=== PATIENT | male | born 1965 | race Caucasian/White ===

== ENCOUNTER 2016-07-08 11:40 | Emergency (ER) | payer OTHER ==
--- NOTE | 2016-07-08 12:33 | UC ---
Palpitation/Dysrhythmia HP - HPI Summary HPI Summary: The patient comes in today for: 1. "My thought my heart sounded different," he states that he has had: a. Generalized heaviness b. Fatigue c. Near syncope with standing up suddenly after laying down "for a while." By "a while" he means for about 4 months. He denies any palpitations. He states that he has had problems with fatigue. Onset: The near syncope has been present after starting the nortriptyline about 4 months ago. Palliative/provocative: Cialis makes it worse. Quality: Near syncope Region: CVS Severity: No pain. Time: Comes and goes. Associated symptoms: Event: He was started on his amitriptyline/nortriptyline by his gastroentertologist for his "stomach burning." He states that his who is a metal riveting machine operator, was listening to his heart with her ear and states that it seems like he is having skipped beats. Chest pain: None. Dyspnea: None Syncope: NOne. He has been taking Cialis also. No near syncope laying down. * - History of Current Complaint Chief Complaint: UCCardiac Stated Complaint: POSSIBLE EXTRA HEART BEATS Time Seen by Provider: 07/08/16 12:27 Hx Obtained From: Patient - Allergy/Home Medications Allergies/Adverse Reactions: Allergies Allergy/AdvReac Type Severity Reaction Status Date / Time Adhesive Tape Allergy slight rash Verified 07/08/16 11:44 Albuterol Allergy Unknown Verified 07/08/16 11:44 Reaction Details Lactose Intolerance (GI) Allergy GI Upset Verified 07/08/16 11:44 Home Medications: Home Medications Nortriptyline HCl [Pamelor] 7.5 mg PO BID 07/08/16 [History Confirmed 07/08/16] Tadalafil [Cialis] 2 mg PO 07/08/16 [History] PMH/Surg Hx/FS Hx/Imm Hx Previously Healthy: No - ED, and 'stomach burning sensation' on nortriptyline. Endocrine History Of: Denies: Diabetes, Thyroid Disease, Hyperthyroidism, Hypothyroidism, Dyslipidemia Cardiovascular History Of: Denies: Cardiac Disorders, Hypertension, Pacemaker/ICD, Myocardial Infarction , Congestive Heart Failure, Atrial Fibrillation, Deep Vein Thrombosis, Bleeding Disorders Respiratory History Of: Denies: COPD, Asthma, Bronchitis, Pneumonia, Pulmonary Embolism GI/ History Of: Reports: Gastroesophageal Reflux Denies: Ulcer, Gastrointestinal Bleed, Gall Bladder Disease, Kidney Stones, Diverticulitis, Renal Disease, Urosepsis Neurological History Of: Denies: TIA, CVA, Dementia, Seizures, Migraine Psychological History Of: Reports: Anxiety - He states that he has had medically induced anxiety. Denies: Depression, Bipolar Disorder, Schizophrenia, Post Traumatic Stress Disorder Cancer History Of: Denies: Lung Cancer, Colorectal Cancer, Breast Cancer, Prostate Cancer, Cervical Cancer Other History Of: Negative For: HIV, Hepatitis B, Hepatitis C, Anticoagulant Therapy - Surgical History Surgical History: Yes Surgery Procedure, Year, and Place: Hernia Repair- 1966-UTOPIA,[facility] fundoplication surgery for gerd - Family History Known Family History: Positive: Cardiac Disease, Hypertension - Social History Occupation: Employed Full-time Alcohol Use: None Substance Use Type: None Smoking Status (MU): Never Smoked Tobacco Have You Smoked in the Last Year: No Review of Systems Constitutional: Negative Skin: Negative Eyes: Blurred Vision - "from nortriptyline." ENT: Negative Respiratory: Negative Cardiovascular: Negative All Other Systems Reviewed And Are Negative: Yes Physical Exam Triage Information Reviewed: Yes Appearance: Well-Appearing, No Pain Distress, Well-Nourished, Ill-Appearing Vital Signs: Initial Vital Signs Temp 98.1 F 07/08/16 11:47 Pulse 85 07/08/16 11:47 Resp 16 07/08/16 11:47 BP 146/89 07/08/16 11:47 Pulse Ox 97 07/08/16 11:47 Vital Signs Reviewed: Yes Eyes: Positive: Conjunctiva Clear. Negative: Discharge ENT: Positive: Hearing grossly normal. Negative: Pharyngeal erythema, Nasal congestion, Nasal drainage, TM bulging, TM dull, TM red, Tonsillar swelling, Tonsillar exudate Dental: Negative: Gross Decay/Caries @, Dental Fracture @ Neck: Positive: Supple, Nontender, No Lymphadenopathy. Negative: Nuchal Rigidity Respiratory: Positive: Lungs clear, No respiratory distress, No accessory muscle use. Negative: Crackles, Wheezing Cardiovascular: Positive: RRR, No Murmur Abdomen Description: Positive: Nontender, No Organomegaly, Soft. Negative: Distended, Guarding Musculoskeletal: Positive: Strength Intact, ROM Intact, No Edema Neurological: Positive: Alert, Muscle Tone Normal Psychological: Positive: Age Appropriate Behavior, Consolable Diagnostics - Laboratory Diagnostic Studies Completed/Ordered: EKG: Rate: 99. Rhythm: sinus tachycardia. Ectopy: Atrial premature complexes. Acute changes: None. Palpitations Course/Dx - Course Course Of Treatment: The patient was told of his EKG findings. He was told that the safest thing would probably to go to the ER for evaluation of his palpitations, near-syncope, and generalized fatigue. But, he was also told that these symptoms may all be related to the his use of nortriptyline and/or Cialis. He was told of his diagnostic and treatment options. He said that he wanted to keep off the Cialis and see his primary care provider for further evaluation and treatment. - Differential Dx/Diagnosis Provider Diagnoses: Near-syncope possibily medication related (Cialis, nortriptyline). Sinus tachycardia, Premature atrial beats. Generalized weakness Discharge - Discharge Plan Condition: Stable Disposition: AGAINST MEDICAL ADVICE Patient Education Materials: Near Syncope (ED), Atrial Tachycardia (ED), Premature Atrial Contractions (ED) Referrals: Jayjay Arcos MD [Primary Care Provider] - (Please see your primary care provider in a week to see how well you are doing. If you get worse, please be seen sooner in the ER or through us.) Additional Instructions: If you are not going to the ER for evaluation of your palpitations and near- syncope, please reconsider if you are having any new problems such as feeling like you are going to faint while laying down, or having any chest pain, shortness of breath, or your palpitations get worse. Please come off the Cialis. Contact your primary care provider/GI specialist about getting off the nortriptyline.
[2016-07-08 14:12] VITALS: BP 124/78
== END 2016-07-08 14:12 | disposition left against medical advice (07) ==
LOC: UCEAST 11:40
DX: R55 Syncope and collapse (principal); I47.1 Supraventricular tachycardia; R53.1 Weakness
CPT/HCPCS: 93005; 99212; G0463